=== PATIENT | male | born 1995 | race African-American/Black ===

== ENCOUNTER 2018-05-24 01:54 | Emergency (ER) | payer SELFPAY ==
[2018-05-24 02:22] LABS: Absolute Lymphocytes (CBC) 2.7 K/uL (0.7-4.9); Absolute Monocytes 0.6 K/uL (0.1-1.3); Absolute Neutrophil 5.7 K/uL (1.8-8.0); Basophils % 0.4 % (0-1.3); Eosinophils % 1.3 % (0-4.4); Hematocrit 43.4 % (39.6-49.0); Lymphocytes % 29.4 % (15.3-44.8); MPV 7.9 fL (7.6-11.3); Monocytes % 6.1 % (3.3-12.3)
[2018-05-24 02:26] LABS: Protime INR 1.17
[2018-05-24 03:12] LABS: ALT/SGPT 18 U/L (12-78); AST/SGOT 11 U/L (15-37); Albumin 4.1 g/dL (3.4-5.0); Alkaline Phosphatase 58 U/L (45-117); BUN Blood Urea Nitrogen 11 mg/dL (7-18); Bicarbonate 30 mmol/L (21-32); Bilirubin Direct 0.1 mg/dL (0-0.2); Bilirubin Total 0.3 mg/dL (0.2-1.0); Glucose Level 82 mg/dL (74-106); Potassium 3.7 mmol/L (3.5-5.1); Protein, Total 8.1 g/dL (6.4-8.2); Sodium Level 142 mmol/L (136-145)
[2018-05-24 05:15] LABS: Urine Blood NEGATIVE (NEG); Urine Glucose NEGATIVE (NEG); Urine Protein NEGATIVE (NEG); Urine pH 6.5 (5.0-7.0)
[2018-05-24 05:15] LABS: Barbiturates NEGATIVE (NEGATIVE); Benzodiazepines NEGATIVE (NEGATIVE); Cocaine POSITIVE (NEGATIVE); METHAMPHETAM NEGATIVE (NEGATIVE); Methadone NEGATIVE (NEGATIVE); Opiates NEGATIVE (NEGATIVE); Phencyclidine NEGATIVE (NEGATIVE); THC Cannibis POSITIVE (NEGATIVE)
--- NOTE | 2018-05-24 06:27 | ER ---
Nurse's Notes [facility] Name: Dylan Reyna Age: 23 yrs Sex: Male : 1995 Arrival Date: 05/24/2018 Time: 01:55 Bed 17 Private MD: Diagnosis: Suicidal ideations Presentation: 05/24 01:59 Presenting complaint: EMS states: Police were called because patient was wanting to ed1 jump out in front of a car. When police arrived patient was not compliant with their instructions in the hope that the police would shoot him. Transition of care: patient was not received from another setting of care. Onset of symptoms was May 23, 2018. Risk Assessment: Do you want to hurt yourself or someone else? Patient reports desire/thoughts of hurting themselves or someone else. Provider notified. Initial Sepsis Screen: Does the patient meet any 2 criteria? No. Patient's initial sepsis screen is negative. Does the patient have a suspected source of infection? No. Patient's initial sepsis screen is negative. Care prior to arrival: None. [place] [employer] notified by EMS. 01:59 Method Of Arrival: EMS: [facility] ed1 01:59 Acuity: TIARA 2 ed1 Triage Assessment: 02:01 General: Appears in no apparent distress. Behavior is calm, cooperative. Pain: ed1 Complains of pain in left lower quadrant and left leg Pain does not radiate. Pain currently is 10 out of 10 on a pain scale. Quality of pain is described as sharp, Pain began 2-3 days ago. Is continuous. EENT: Oral mucosa is moist. Neuro: Level of Consciousness is awake, alert, obeys commands, Oriented to person, place, time, situation. Cardiovascular: Denies chest pain, Heart tones S1 S2 present. Respiratory: Airway is patent Respiratory effort is even, unlabored, Respiratory pattern is regular, symmetrical, Breath sounds are clear bilaterally. Denies cough, shortness of breath. GI: Abdomen is non-distended, Bowel sounds present X 4 quads. Abd is soft and non tender X 4 quads. Reports lower abdominal pain, Patient currently denies diarrhea, nausea, vomiting. : No signs and/or symptoms were reported regarding the genitourinary system. Derm: Skin is intact, is healthy with good turgor, Skin is dry, Skin is normal, Skin temperature is warm. Musculoskeletal: Circulation, motion, and sensation intact. Range of motion: intact in all extremities, Reports pain in left leg. Historical: - Allergies: 02:01 No Known Allergies; ed1 - Home Meds: 02:01 None [Active]; ed1 - PMHx: 02:01 Epilepsy; Asthma; ed1 - PSHx: 02:01 None; ed1 - Immunization history:: Adult Immunizations unknown, Flu vaccine is not up to date. - Social history:: Smoking status: Patient uses tobacco products, smokes two packs cigarettes per day. Patient uses alcohol, weekly. street drugs, cocaine, marijuana. - Family history:: not pertinent. - Ebola Screening: : Patient negative for fever greater than or equal to 101.5 degrees Fahrenheit, and additional compatible Ebola Virus Disease symptoms Patient denies exposure to infectious person Patient denies travel to an Ebola-affected area in the 21 days before illness onset No symptoms or risks identified at this time. - Hospitalizations: : No recent hospitalization is reported. Screenin:05 Abuse screen: Denies threats or abuse. Denies injuries from another. Nutritional ed1 screening: No deficits noted. Tuberculosis screening: No symptoms or risk factors identified. Fall Risk No fall in past 12 months (0 pts). No secondary diagnosis (0 pts). IV access (20 points). Ambulatory Aid- Crutches/Cane/Walker (15 pts). Gait- Impaired (20 pts.). Mental Status- Oriented to own ability (0 pts). Total Barber Fall Scale indicates High Risk Score (45 or more points). Fall prevention measures have been instituted. Side Rails Up X 2 Placed Close to Nursing Station 1:1 Attendant Assigned Frequent Obs/Assessments Occuring As available patient and family educated on Fall Prevention Program and Strategies. Assessment: 02:05 General: See triage assessment. ed1 03:05 Reassessment: Patient appears in no apparent distress at this time. No changes from ed1 previously documented assessment. Respiratory: Airway is patent Respiratory effort is even, unlabored, Respiratory pattern is regular, symmetrical. 04:05 Reassessment: Patient appears in no apparent distress at this time. No changes from ed1 previously documented assessment. 05:05 Reassessment: Patient appears in no apparent distress at this time. No changes from ed1 previously documented assessment. Respiratory: Airway is patent Respiratory effort is even, unlabored, Respiratory pattern is regular, symmetrical. 05:31 Reassessment: pt states he wishes to be treated at a mental health facility and chooses bb to go voluntarily. 06:05 Reassessment: Patient appears in no apparent distress at this time. Patient and/or ed1 family updated on plan of care and expected duration. Pain level reassessed. Patient is alert, oriented x 3, equal unlabored respirations, skin warm/dry/pink. Pt reports pain in abdomen and leg has gotten better. 07:00 General: Appears in no apparent distress. comfortable, Behavior is calm, cooperative, hj appropriate for age. Pain: Denies pain. Neuro: Level of Consciousness is awake, alert, obeys commands, Oriented to person, place, time, situation, Appropriate for age. Cardiovascular: Capillary refill < 3 seconds Patient's skin is warm and dry. Respiratory: Airway is patent Respiratory effort is even, unlabored, Respiratory pattern is regular, symmetrical, Breath sounds are clear. GI: No signs and/or symptoms were reported involving the gastrointestinal system. : No signs and/or symptoms were reported regarding the genitourinary system. EENT: No signs and/or symptoms were reported regarding the EENT system. Derm: No signs and/or symptoms reported regarding the dermatologic system. Musculoskeletal: No signs and/or symptoms reported regarding the musculoskeletal system. 07:10 Reassessment: called [employer], states, to call back in 10 mins for report;. hj 07:31 Reassessment: called back, states to call back in 15 mins;. hj 07:56 Reassessment: called back for report, states that charge nurse Anthony will call us back hj if they're ready for report;. Psych: 02:08 Subjective: Patient's mood is sad, hopeless, Delusions are denied, Hallucinations are ed1 denied Having thoughts of suicide. Plan for suicide is to have the front desk team member shoot him. Objective: Patient is cooperative, Speech is normal, Affect is appropriate. Interventions: Removed personal items and placed in bag. Patient placed in hospital gown. Searched person for dangerous items. Belonging list filled out. Patient reassessed during use of restraints. Patient is physically safe. Patient's cardiac status is stable. Patient's respirations are even and unlabored. Patient has good circulation in all extremities as indicated by capillary refill < 3 seconds. Patient's ROM assessed and is intact. Patient nutrition and hydration needs will continue to be monitored and addressed. Patient hygiene and elimination needs met. Patient assessed for signs of distress. Patient remains reasonably comfortable at this time. Suicide Risk Assessment: Sad Person Scale: Sex of patient: Male: Score 1 point. Age of patient: Score 1 point if patient 15-34. Depression: Score 1 point if signs of depression are present. Previous Attempt: Score 1 point if patient has previously attempted suicide. Substance Abuse: Score 1 point if patient abuses alcohol or drugs. Rational Thinking: Score 0 point if patient has rational thinking. Social Support: Score 1 point if social support is lacking and/or unavailable. Organized Plan: Score 1 point if patient had a plan in place. Relationship: Score 1 point if patient is , , , or for a single male Chronic Sickness: Score 1 point if patient has illness, chronic, debilitating, or severe. TOTAL POINTS: If total points are 7-10, the proposed clinical action is to hospitalize or commit. Implement suicide precautions. Safety Checks: Personal items have been removed. Door is open. No visitors are present at this time. Patient uses 1 Ed and Coke of liquor, Last use was 3 hours ago. Patient does not have a history of DTs. Patient uses cocaine, unknown weekly Last use was 3 days ago. Patient uses marijuana 2-4 joints daily Last use was 1 days ago. Commitment: Patient will be a voluntary commitment. Vital Signs: 02:01 BP 159 / 94; Pulse 77; Resp 17; Temp 98.3(O); Pulse Ox 100% on R/A; Weight 87.54 kg; ed1 Height 5 ft. 7 in. (170.18 cm); Pain 10/10; 04:05 BP 136 / 78; Pulse 70; Resp 16; Pulse Ox 100% on R/A; Pain 10/10; ed1 06:05 BP 107 / 69; Pulse 80; Resp 16; Temp 97.9(O); Pulse Ox 100% on R/A; Pain 5/10; ed1 07:00 BP 118 / 70; Pulse 78; Resp 18; Pulse Ox 100% on R/A; hj 02:01 Body Mass Index 30.23 (87.54 kg, 170.18 cm) ed1 ED Course: 01:55 Patient arrived in ED. am2 01:55 Jayson Starks MD is Attending Physician. rn 01:55 Safety Checks: Personal items have been removed. The door is open or patient has been ed1 placed in a hallway bed/chair. There are no family/friend visitors at this time Sitter present at this time. 01:59 Naila Weems, RN is Primary Nurse. ed1 02:00 Triage completed. ed1 02:00 Safety Checks: Personal items have been removed. The door is open or patient has been ed1 placed in a hallway bed/chair. There are no family/friend visitors at this time Sitter present at this time. 02:01 Arm band placed on left wrist. Patient placed in an exam room, on a stretcher, in view ed1 of staff members. 02:05 Patient has correct armband on for positive identification. Placed in gown. Bed in low ed1 position. Valuables inventory done. Locked in safe. See valuables checklist. 02:15 Safety checks: Items removed: yes. Door open/sign placed on door: Patient placed in ag4 hallway bed. Family/friend present: no. Sitter present: Yes. 02:19 Inserted saline lock: 20 gauge in right antecubital area, using aseptic technique. ag4 Blood collected. 02:19 EKG done, by ED staff, reviewed by Jayson Starks MD. ag4 02:30 Safety checks: Items removed: yes. Door open/sign placed on door: Patient placed in ag4 hallway bed. Family/friend present: no. Sitter present: Yes. 02:45 Safety checks: Items removed: yes. Door open/sign placed on door: Patient placed in ag4 hallway bed. Family/friend present: no. Sitter present: Yes. 03:00 Safety checks: Items removed: yes. Door open/sign placed on door: Patient placed in ag4 hallway bed. Family/friend present: no. Sitter present: Yes. 03:05 Appears to be sleeping. ed1 03:15 Safety checks: Items removed: yes. Door open/sign placed on door: Patient placed in ag4 hallway bed. Family/friend present: no. Sitter present: Yes. 03:30 Safety checks: Items removed: yes. Door open/sign placed on door: Patient placed in ag4 hallway bed. Family/friend present: no. Sitter present: Yes. 03:45 Safety checks: Items removed: yes. Door open/sign placed on door: Patient placed in ag4 hallway bed. Family/friend present: no. Sitter present: Yes. 04:00 Safety checks: Items removed: yes. Door open/sign placed on door: Patient placed in ag4 hallway bed. Family/friend present: no. Sitter present: Yes. 04:15 Safety checks: Items removed: yes. Door open/sign placed on door: Patient placed in ag4 hallway bed. Family/friend present: no. Sitter present: Yes. 04:30 Safety checks: Items removed: yes. Door open/sign placed on door: Patient placed in ag4 hallway bed. Family/friend present: no. Sitter present: Yes. 04:45 Safety checks: Items removed: yes. Door open/sign placed on door: Patient placed in ag4 hallway bed. Family/friend present: no. Sitter present: Yes. 04:57 Urine collected: clean catch specimen, clear. bb 05:00 Safety checks: Items removed: yes. Door open/sign placed on door: Patient placed in ag4 hallway bed. Family/friend present: no. Sitter present: Yes. 05:05 Appears to be sleeping. ed1 05:15 Safety checks: Items removed: yes. Door open/sign placed on door: Patient placed in ag4 hallway bed. Family/friend present: no. Sitter present: Yes. 05:30 Safety checks: Items removed: yes. Door open/sign placed on door: Patient placed in ag4 hallway bed. Family/friend present: no. Sitter present: Yes. 05:41 Removal of peripheral IV. Catheter intact, dressing applied. ag4 05:45 Safety checks: Items removed: yes. Door open/sign placed on door: Patient placed in ag4 hallway bed. Family/friend present: no. Sitter present: Yes. 06:00 Safety checks: Items removed: yes. Door open/sign placed on door: Patient placed in ag4 hallway bed. Family/friend present: no. Sitter present: Yes. 06:05 Resting quietly. transfer approval from receiving facility. ed1 06:05 Safety Checks: Personal items have been removed. The door is open or patient has been ed1 placed in a hallway bed/chair. There are no family/friend visitors at this time Sitter present at this time. 06:15 Safety checks: Items removed: yes. Door open/sign placed on door: Patient placed in ag4 hallway bed. Family/friend present: no. Sitter present: Yes. 06:30 Safety checks: Items removed: yes. Door open/sign placed on door: Patient placed in ag4 hallway bed. Family/friend present: no. Sitter present: Yes. 06:45 Safety checks: Items removed: yes. Door open/sign placed on door: Patient placed in ag4 hallway bed. Family/friend present: no. Sitter present: Yes. 06:58 Primary Nurse role handed off by Naila Weems RN ed1 07:15 Robert Kothari RN is Primary Nurse. blayne Administered Medications: No medications were administered Outcome: 06:27 ER care complete, transfer ordered by . rn 08:41 Patient left the ED. tw2 Signatures: Bushra Walton RN RN bb Nieto, Roman, MD MD rn Riggs, Erika, RN RN ed1 Robert Kothari RN RN hj Wise, Tara, RN RN tw2 Maribell Castro am2 [place] ag4 Corrections: (The following items were deleted from the chart) 02:31 02:29 Safety checks: Items removed: yes. Door open/sign placed on door: Patient placed ag4 in hallway bed. Family/friend present: no. Sitter present: Yes. ag4 02:46 02:44 Safety checks: Items removed: yes. Door open/sign placed on door: Patient placed ag4 in hallway bed. Family/friend present: no. Sitter present: Yes. ag4 02:54 01:59 Presenting complaint: EMS states: Pt is being brought in for suicidal ideations. ed1 ed1 03:01 03:01 Safety checks: Items removed: yes. Door open/sign placed on door: Patient placed ag4 in hallway bed. Family/friend present: no. Sitter present: Yes. ag4 03:20 03:18 Safety checks: Items removed: yes. Door open/sign placed on door: Patient placed ag4 in hallway bed. Family/friend present: no. Sitter present: Yes. ag4 03:50 03:49 Safety checks: Items removed: yes. Door open/sign placed on door: Patient placed ag4 in hallway bed. Family/friend present: no. Sitter present: Yes. ag4 03:50 03:30 Safety checks: Items removed: yes. Door open/sign placed on door: Patient placed ag4 in hallway bed. Family/friend present: no. Sitter present: Yes. ag4 04:02 04:01 Safety checks: Items removed: yes. Door open/sign placed on door: Patient placed ag4 in hallway bed. Family/friend present: no. Sitter present: Yes. ag4 04:19 04:17 Safety checks: Items removed: yes. Door open/sign placed on door: Patient placed ag4 in hallway bed. Family/friend present: no. Sitter present: Yes. ag4 04:34 04:24 Safety checks: Items removed: yes. Door open/sign placed on door: Patient placed ag4 in hallway bed. Family/friend present: no. Sitter present: Yes. ag4 05:03 04:57 Safety checks: Items removed: yes. Door open/sign placed on door: Patient placed ag4 in hallway bed. Family/friend present: no. Sitter present: Yes. ag4 05:23 05:22 Safety checks: Items removed: yes. Door open/sign placed on door: Patient placed ag4 in hallway bed. Family/friend present: no. Sitter present: Yes. ag4 05:57 05:56 Safety checks: Items removed: yes. Door open/sign placed on door: Patient placed ag4 in hallway bed. Family/friend present: no. Sitter present: Yes. ag4 06:14 06:05 Resp 16bpm; Temp 97.9F Oral; Pain 5/10; ed1 ed1 06:20 06:18 Safety checks: Items removed: yes. Door open/sign placed on door: Patient placed ag4 in hallway bed. Family/friend present: no. Sitter present: Yes. ag4 06:22 06:00 Safety checks: Items removed: yes. Door open/sign placed on door: Patient placed ag4 in hallway bed. Family/friend present: no. Sitter present: Yes. ag4 06:36 06:35 Safety checks: Items removed: yes. Door open/sign placed on door: Patient placed ag4 in hallway bed. Family/friend present: no. Sitter present: Yes. ag4 06:47 06:46 Safety checks: Items removed: yes. Door open/sign placed on door: Patient placed ag4 in hallway bed. Family/friend present: no. Sitter present: Yes. ag4
--- NOTE | 2018-05-24 06:28 | EDPHYS ---
Physician Documentation [facility] Name: Dylan Reyna Age: 23 yrs Sex: Male : 1995 Arrival Date: 05/24/2018 Time: 01:55 Bed 17 Private MD: ED Physician Jayson Starks HPI: 05/24 01:57 This 23 yrs old Black Male presents to ER via Unassigned with complaints of suicidal rn ideation. 01:57 The patient presents to the emergency department with depression, suicide ideation. rn Onset: The symptoms/episode began/occurred at an unknown time. Severity of symptoms:. The patient has experienced similar episodes in the past. The patient has not recently seen a physician. Reports feeling down for sometime, has been having thoughts of hurting himself for 15 years, has previous attempts, was at [facility] and plan was to jump in front of car. Did not overdose or use drugs. . Historical: - Allergies: 02:01 No Known Allergies; ed1 - Home Meds: 02:01 None [Active]; ed1 - PMHx: 02:01 Epilepsy; Asthma; ed1 - PSHx: 02:01 None; ed1 - Immunization history:: Adult Immunizations unknown, Flu vaccine is not up to date. - Social history:: Smoking status: Patient uses tobacco products, smokes two packs cigarettes per day. Patient uses alcohol, weekly. street drugs, cocaine, marijuana. - Family history:: not pertinent. - Ebola Screening: : Patient negative for fever greater than or equal to 101.5 degrees Fahrenheit, and additional compatible Ebola Virus Disease symptoms Patient denies exposure to infectious person Patient denies travel to an Ebola-affected area in the 21 days before illness onset No symptoms or risks identified at this time. - Hospitalizations: : No recent hospitalization is reported. ROS: 01:57 Constitutional: Negative for fever, chills, and weight loss, Eyes: Negative for injury, rn pain, redness, and discharge, Neck: Negative for injury, pain, and swelling, Cardiovascular: Negative for chest pain, palpitations, and edema, Respiratory: Negative for shortness of breath, cough, wheezing, and pleuritic chest pain, Abdomen/GI: Negative for abdominal pain, nausea, vomiting, diarrhea, and constipation, MS/Extremity: Negative for injury and deformity, Skin: Negative for injury, rash, and discoloration, Neuro: Negative for headache, weakness, numbness, tingling, and seizure. Exam: 01:57 Constitutional: This is a well developed, well nourished patient who is awake, alert, rn and in no acute distress. Head/Face: Normocephalic, atraumatic. ENT: MMM Respiratory: No increased work of breathing, no retractions, speaking full sentences Skin: Warm, dry with normal turgor. Normal color with no rashes, no lesions, and no evidence of cellulitis. MS/ Extremity: Pulses equal, no cyanosis. Neurovascular intact. Full, normal range of motion. Equal circumference. Neuro: Awake and alert, GCS 15, oriented to person, place, time, and situation. Cranial nerves II-XII grossly intact. Motor strength 5/5 in all extremities. Sensory grossly intact. Cerebellar exam normal. Normal gait. Psych: Awake, alert, with orientation to person, place and time. Behavior, mood, and affect are within normal limits. Vital Signs: 02:01 BP 159 / 94; Pulse 77; Resp 17; Temp 98.3(O); Pulse Ox 100% on R/A; Weight 87.54 kg; ed1 Height 5 ft. 7 in. (170.18 cm); Pain 10/10; 04:05 BP 136 / 78; Pulse 70; Resp 16; Pulse Ox 100% on R/A; Pain 10/10; ed1 06:05 BP 107 / 69; Pulse 80; Resp 16; Temp 97.9(O); Pulse Ox 100% on R/A; Pain 5/10; ed1 07:00 BP 118 / 70; Pulse 78; Resp 18; Pulse Ox 100% on R/A; hj 02:01 Body Mass Index 30.23 (87.54 kg, 170.18 cm) ed1 MDM: 01:55 Patient medically screened. rn 06:26 Differential diagnosis: depression. Data reviewed: vital signs, nurses notes, lab test rn result(s), EKG, and as a result, I will admit patient. Counseling: I had a detailed discussion with the patient and/or guardian regarding: the historical points, exam findings, and any diagnostic results supporting the discharge/admit diagnosis, lab results, radiology results, the [facility]. Response to treatment: There is no appreciated change of the patient's symptoms at this time, and as a result, I will admit patient. ED course: Accepted for transfer to [facility] for psychiatric care, is medically clear. . 05/24 01:56 Order name: Acetaminophen; Complete Time: 03:26 rn 05/24 01:56 Order name: Basic Metabolic Panel; Complete Time: 03: rn 05/24 01:56 Order name: CBC with Diff; Complete Time: 03: rn 05/24 01:56 Order name: ETOH Level; Complete Time: 03: rn 05/24 01:56 Order name: Hepatic Function; Complete Time: : rn 05/24 01:56 Order name: PT-INR; Complete Time: : rn 05/24 01:56 Order name: Ptt, Activated; Complete Time: 03: rn 05/24 01:56 Order name: Salicylate; Complete Time: 03: rn 05/24 01:56 Order name: Urine Drug Screen; Complete Time: 06:23 rn 05/24 01:56 Order name: EKG; Complete Time: 01:57 rn 05/24 01:56 Order name: EKG - Nurse/Tech; Complete Time: 02:18 rn 05/24 01:56 Order name: IV Saline Lock; Complete Time: 02:18 rn 05/24 04:57 Order name: Urine Dipstick--Ancillary (enter results); Complete Time: 06:23 bb 05/24 06:11 Order name: Diet Regular; Complete Time: 06:11 ed1 05/24 01:56 Order name: Labs collected and sent; Complete Time: 02:18 rn 05/24 01:56 Order name: Urine Dipstick-Ancillary (obtain specimen); Complete Time: 04:56 rn Administered Medications: No medications were administered Disposition: 05/24/18 06:27 Transfer ordered to Psych Facility. Diagnosis is Suicidal ideations. - Reason for transfer: Higher level of care. - Accepting physician is Dr. Russell. - Condition is Stable. - Problem is an ongoing problem. - Symptoms are unchanged. Signatures: Dispatcher [employer] EDMS Jayson Starks MD MD rn Riggs, Erika, RN RN ed1 Jeaneth Ludwig RN RN tw2 Corrections: (The following items were deleted from the chart) 08:41 06:27 05/24/2018 06:27 Transfer ordered to Psych Facility. Diagnosis is Suicidal tw2 ideations. Reason for transfer: Higher level of care. Accepting physician is Dr. Russell. Condition is Stable. Problem is an ongoing problem. Symptoms are unchanged. rn
--- NOTE | 2018-05-24 09:14 | EKG ---
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
== END 2018-05-24 08:41 ==
LOC: ER 01:54
DX: R45.851 Suicidal ideations (principal); F32.9 Major depressive disorder, single episode, unspecified; F17.210 Nicotine dependence, cigarettes, uncomplicated; J45.909 Unspecified asthma, uncomplicated; G40.909 Epilepsy, unspecified, not intractable, without status epilepticus
CPT/HCPCS: 36415; 80048; 80076; 80307; 80320; 80329; 81003; 85025; 85610; 85730; 93005; 99285